=== PATIENT | male | born 1955 | race Caucasian/White ===

== ENCOUNTER 2025-03-02 07:55 | Outpatient (CLI) | payer MEDICARE, BC ==
[2025-03-02] MEDS ORDERED: Iopamidol 370 76% 100 ML VIAL ONE (15:27)
== END 2025-03-02 07:56 | disposition home or self-care (01) ==
LOC: CSHCT 07:55
PROVIDERS: ATTEND Family Medicine
DX: R06.02 Shortness of breath (principal); J84.9 Interstitial pulmonary disease, unspecified
CPT/HCPCS: 71275; Q9967